=== PATIENT | female | born 1980 | race Caucasian/White ===

== ENCOUNTER 2022-09-25 11:18 | Emergency (ER) | payer MEDICAID, SELFPAY ==
[2022-09-25 11:47] VITALS: BP 160/90; PULSE 66; RESP 18; TEMP 36; O2SAT 95; BMI 54.8
[2022-09-25 12:00] VITALS: BP 146/80; PULSE 55; RESP 16; O2SAT 95
--- NOTE | 2022-09-25 12:04 | ED_ITS ---
HPI - General Adult General Time Seen by Provider: 12:04 Date Seen: 09/25/22 Chief complaint: Chest Pain Stated complaint: chest pain, L arm numb Time Seen by Provider: 09/25/22 12:04 Source: patient and RN notes reviewed Mode of arrival: ambulatory Limitations: no limitations History of Present Illness HPI narrative: Patient is a 41-year-old female coming into the ER of her own accord. She is coming in with complaint of chest pain that is been there for about 3 weeks. She believes that it may be more than just her anxiety. She endorses very severe anxiety to the point that she just wants to stay in her room all the time. She has a friend that she states keeps coming around to visit her for couple hours at a time which she is asked that they not do. She is trying to get outside now that it is not winter. She describes herself as very mobile. She feels this substernal chest pain and almost come like a wave upper chest into her neck. She feels short of breath, endorses chronic underlying cough due to smoking status. No history of pulmonary embolism, has not been sick. She states she has some chronic abdominal pain, wonders if this could be her UTI that is back. Did offer to run a urinalysis but she thinks she will not be able to urinate while here. She also notes for the last week some tingling in her left arm, no pain. It is all up and down the arm. She has no loss motor or function of the arm. She states she can still feel with it but it just feels numb and tingly. She does have a history of carpal tunnel on the right side, di d have numbness tingling but also experienced pain in the lower arm. No fevers or chills. Denies any heartburn, denies any associated nausea vomiting or diarrhea with this. She likens the sensation that she is feeling when you get food stuck or swallow wrong and there is a pain that comes up. She is most definitely not having dysphagia at the time, this is how it feels to her when it happens. Again the chest discomfort is been going on about 3 weeks, numbness tingling or arm over a week. Related Data Home Medications Medication Instructions Recorded Confirmed albuterol 90 mcg/actuation aerosol mcg inhalation 09/25/22 inhaler amlodipine 5 mg tablet 5 mg PO DAILY 09/25/22 09/25/22 diazepam 2 mg tablet (Valium) 1 mg PO DAILY PRN 09/25/22 09/25/22 diphenhydramine HCl .ROUTE 09/25/22 montelukast 10 mg tablet 10 mg PO QPM 09/25/22 09/25/22 Allergies Allergy/AdvReac Type Severity Reaction Status Date / Time bupropion [From Wellbutrin] Allergy Verified 09/25/22 11:44 citalopram [From Celexa] Allergy Verified 09/25/22 11:44 cyclobenzaprine Allergy Verified 09/25/22 11:44 [From Flexeril] droperidol Allergy Verified 09/25/22 11:44 duloxetine [From Cymbalta] Allergy Verified 09/25/22 11:44 fexofenadine Allergy Verified 09/25/22 11:44 hydrochlorothiazide Allergy Verified 09/25/22 11:44 ketorolac Allergy Verified 09/25/22 11:44 lorazepam [From Ativan] Allergy Verified 09/25/22 11:44 losartan Allergy Verified 09/25/22 11:44 omeprazole Allergy Verified 09/25/22 11:44 paroxetine [From Paxil] Allergy Verified 09/25/22 11:44 quetiapine [From Seroquel] Allergy Verified 09/25/22 11:44 sertraline Allergy Verified 09/25/22 11:44 Sulfa (Sulfonamide Allergy Verified 09/25/22 11:44 Antibiotics) tramadol Allergy Verified 09/25/22 11:44 varenicline [From Chantix] Allergy Verified 09/25/22 11:44 Review of Systems Status of ROS: Reports: 10 or more systems reviewed and unremarkable except as noted in History and below [facility] Social History Smoking Status: Light tobacco smoker Do you use any of these nicotine containing products: Vaping Products How often do you have a drink containing alcohol: never AUDIT-C Alcohol total score: 0 Non-prescribed substance use: marijuana (any form) Exam Const: Vital Signs, click to edit/add: Vital Signs - 24 hr 09/25/22 11:47 09/25/22 12:00 09/25/22 12:51 Temperature 96.8 F L Pulse Rate [Right Pulse Oximeter] 66 55 L Respiratory Rate 18 16 Blood Pressure [Ri ght Upper Arm] 160/90 H 146/80 H Pulse Oximetry 95 95 98 Oxygen Delivery Me thod Room Air Room Air 09/25/22 13:00 09/25/22 13:30 Temperature Pulse Rate [Right Pulse Oximeter] 56 L 53 L Respiratory Rate 16 16 Blood Pressure [Ri t Upper Arm] 155/70 H 171/92 H Pulse Oximetry 97 97 Oxygen Delivery Me thod Documenting provider has reviewed patient's vital signs: yes Common normals: no apparent distress, oriented x3, no limitations, alert and well nourished General appearance: cooperative, comfortable, well kempt and well developed Nutritional appearance: obese HENMT: Common normals: normocephalic, hearing grossly normal bilaterally, ext ernal ears normal, TM's normal bilaterally, external nose normal, nasal mucous membranes and turbinates normal, moist oral mucous membranes, oropharynx normal, dentition normal and gingiva normal Head and scalp: normocephalic Face and sinus: normal facial exam Nose: external nose normal and nasal mucous membranes and turbinates normal External ear: external ears normal Tympanic membrane: TM's normal bilaterally Mouth: lip normal Eye: Common normals: PERRL, EOMs intact bilaterally, conjunctivae normal and no scleral icterus Conjunctiva: conjunctiva(e) normal Pupil: PERRL Neck & C-Spine: Common normals: full ROM (No midline tenderness), no lymphadenopathy, supple, no meningeal signs, no JVD and thyroid normal Thyroid: thyroid normal Chest: Common normals: inspection of chest normal and palpation of chest normal Resp: Common normals: normal respiratory effort, no retractions, no use of accessory muscles and clear to auscultation bilaterally Auscultation: clear to auscultation bilaterally Cardio: Common normals: no JVD, regular rate, regular rhythm, S1 normal heart sound, S2 normal heart sound, no gallops, no clicks, no murmurs and no rub Rate: regular rate Rhythm: regular rhythm Heart sounds: S1 normal and S2 normal GI: Common normals: Normal to inspection, nondistended, normoactive bowel sounds present, soft to palpation and non-tender Palpation: soft Other: Body habitus precludes detection of masses or organomegaly but no tenderness at all. Extremity: Other: Lower extremities are thick but no edema. Neuro: Mary Coma Scale: document GCS findings Broadview coma scale eye opening: Spontaneous (4) Mary coma scale verbal response: Orientated (5) [place]view coma scale motor response: Obey commands (6) Mary coma scale total score: 15 Common normals: oriented x3, CN's II-XII intact bilaterally, moves all extremities, no focal motor deficits, no sensory deficits noted and gait normal Sensorium/orientation: alert Meningeal signs: no meningeal signs Speech: speech normal Other: Evaluation of UE shows symmetric normal strength, feels light touch sensation, good peripheral pulses, no change in color/temperature of extremities. Has normal rapid alternating finger movements bilaterally. No tremors. Psych: Appearance: well kempt Course Course Hospital Course: Reviewed with patient that we certainly will consider cardiac, pulmonary, thromboembolic pathology. Will do full complement of labs and chemistries will be part of that. Doubt that this is gastrointestinal beyond the possibility of esophageal or reflux. She is not however feeling any regurgitant symptoms. The left arm numbness and tingling without any neurologic change on examination could be a peripheral paresthesia. We did discuss cervical radiculopathy but she is not having any pain. It could be early carpal tunnel presentation that is atypical as she has had that on her right arm. Did discuss doing some cervical neck imaging but she states she had an MRI in 2018 and there was maybe some degenerative changes. If her cardiac in other workup here negative, it is likely that I will recommend her following up for the numbness tingling in outpatient workup of that. Reevaluation(s) Reevaluation #1: Reviewed with patient that there is no evidence of pulmonary embolus based on normal D-dimer, no evidence of hypoxia or tachycardia, cardiac labs are normal. She did wonder about her possible urine infection. I a had a note in her chart to collect a urinalysis if she had to go but patient states she just went. Reviewed with her that I need to see the urinalysis while here in order to treat if it is needed. She will see if she can give us a specimen. Time: 14:28 Reevaluation #2: Have reviewed with patient that her urinalysis is not definitively showing evidence requiring treatment. We will await urine culture. She became quite upset about this stating that she had watched her dad's [place] [facility] not treat a UTI. I reassured her that we had a mechanism in place for all urine cultures to be reviewed and should this grow something, we would treat accordingly. We discussed that they did recommend consideration for stress testing and a echo, would need to be ordered through her primary care provider. She states when she tries to get in, they are full and that she cannot get a provider, state that they are not taking new patients. Discussed possible options with her. She requests that we get her an appointment in our clinic here. She has seen [facility]. I reviewed with her that [facility] would not want to address echo in cardiac stress testing. Thus, she did request that I schedule her in our clinic. Time: 15:47 Vital Signs Vital signs: Initial Vital Signs Temperature 96.8 F L 09/25/22 11:47 Temperature Source Temporal Artery Scan 09/25/22 11:47 Pulse Rate 66 09/25/22 11:47 Respiratory Rate 18 09/25/22 11:47 Blood Pressure 160/90 H 09/25/22 11:47 Blood Pressure Mean 113 H 09/25/22 11:47 Blood Pressure Position Sitting 09/25/22 11:47 Pulse Oximetry 95 09/25/22 11:47 Oxygen Delivery Method Room Air 09/25/22 11:47 Vital Signs Temperature 96.8 F L 09/25/22 11:47 Pulse Rate 66 09/25/22 11:47 Respiratory Rate 18 09/25/22 11:47 Blood Pressure 160/90 H 09/25/22 11:47 Pulse Oximetry 95 09/25/22 11:47 Oxygen Delivery Method Room Air 09/25/22 11:47 Temperature 96.8 F L 09/25/22 11:47 Pulse Rate 53 L 09/25/22 13:30 Respiratory Rate 16 09/25/22 13:30 Blood Pressure 171/92 H 09/25/22 13:30 Pulse Oximetry 97 09/25/22 13:30 Oxygen Delivery Method Room Air 09/25/22 12:00 Medical Decision Making Lab Data Labs: Lab Results 09/25/22 09/25/22 Range/Units 12:35 15:15 WBC 11.16 H (4.50-11.00) K/uL RBC 4.99 (4.00-5.20) m/uL Hgb 14.2 (12.0-16.0) gm/dL Hct 42.3 (33.0-51.0) % MCV 85 (80-100) fL MCH 29 (26-34) pg MCHC 34 (32-36) gm/dL RDW Coeff of Marian 12.0 (11.5-15.5) % Plt Count 308 (140-440) K/uL Neut % (Auto) 66.5 (42.0-72.0) % Lymph % (Auto) 23.0 (20-44) % Troup % (Auto) 7.9 (0.0-11.0) % Eos % (Auto) 1.8 (0.0-7.0) % Baso % (Auto) 0.4 (0.0-3.0) % Neut # (Auto) 7.40 H (1.7-7.0) K/uL Lymph # (Auto) 2.60 (0.90-2.90) K/uL Troup # (Auto) 0.90 (0.00-0.90) K/UL Eos # (Auto) 0.20 (0.00-0.50) K/uL Baso # (Auto) 0.00 (0.00-0.30) K/uL ESR 22 H (2-20) mm/hr D-Dimer Quant (PE/DVT) < 0.27 (0.00-0.50) ug/ml Sodium 136 (135-149) mmol/L Potassium 3.4 L (3.6-5.1) mmol/L Chloride 106 (96-114) mmol/L Carbon Dioxide 23 (20-32) mmol/L BUN 8 (5-24) mg/dL Creatinine 0.8 (0.5-1.5) mg/dL Estimated Creat Clear 88.18 Estimated GFR 94 ml/min Glucose 105 (60-115) mg/dL Calcium 8.7 (8.4-10.6) mg/dL Magnesium 2.0 (1.5-2.6) mg/dL Total Bilirubin 0.4 (0.1-1.5) mg/dL AST 19 (12-35) U/L ALT 19 (4-35) U/L Alkaline Phosphatase 117 (40-150) U/L Troponin I < 0.01 L (0.01-0.04) ng/mL C-Reactive Protein 2.5 H (0.5-1.0) mg/dL NT-Pro-B Natriuret Pep 29 pg/mL Total Protein 7.0 (6.0-8.3) g/dL Albumin 3.9 (3.3-5.0) g/dL Urine Color Yellow (Yellow) Urine Appearance Clear (Clear) Urine pH 6.5 (5.0-8.5) Ur Specific Dorset 1.025 (1.000-1.030) Urine Protein Negative (Negative) Urine Glucose (UA) Negative (Negative) Urine Ketones Negative (Negative) Urine Blood Trace-lysed A (Negative) Urine Nitrite Negative (Negative) Urine Bilirubin Negative (Negative) Urine Urobilinogen 0.2 (0.2-1.0) Ur Leukocyte Esterase Trace A (Negative) Urine RBC 0-2 (0-2) Urine WBC 2-5 (0-5) Ur Squamous Epith Cells Few (None-Few) Urine Bacteria Few A (None) POC Troponin I 0.00 L (0.01-0.04) ng/ml Imaging Data Chest x-ray: Attestation: I have reviewed the pertinent imaging results. My impression: I see no evidence of pneumothorax, no acute exudate or infiltrate on this portable chest x-ray my preliminary review. Radiologist's impression: Patient: [facility] Facility:?[facility] Patient ID:?[id number] Site Patient ID:?[id number]. Site :?[id number] Study:?XRay Chest 1 VIEW PORTABLE-09/25/2022 12:48:50 PM Ordering Physician:Noam Garcia Final Report: Indication: Chest pain Comparison: None available. Technique: Single AP view chest Findings: There is hyperinflation and chronic interstitial change. There are mildly increased interstitial markings likely representing pulmonary vascular congestion. There is no dense consolidation, effusion or pneumothorax. The cardiomediastinal silhouette is within normal limits. The bony thorax is grossly intact. Impression: Mildly increased interstitial markings likely representing pulmonary vascular congestion. No dense consolidation. Dictated by James Valdes MD @ 09/25/2022 1:34:08 PM (Electronic Signature) ECG Data Attestation: I personally reviewed and interpreted this ECG as follows: (Sinus rhythm, 65 beats per minute. Nonspecific T-wave abnormality with out ischemic change. QT corrected 459 milliseconds.) Prior ECG tracings: not available for review (Could not pull up old EKG from 2007 in other clinical record.) Critical Care Time Critical Care Time Critical Care Time: No Discharge Plan Discharge Clinical Impression: Numbness and tingling in left arm, Chest pain, Urinary symptom or sign Patient Disposition: Home, Self-Care Condition: Stable Instructions: Chest Pain (ED), Paresthesia (ED), Noncardiac Chest Pain (ED) Additional Instructions: Recommend getting scheduled for a follow-up in clinic within the next week or as soon as possible. Do recommend discussion getting a possible echo, possible cardiac stress testing given your symptoms. May need further testing for the left arm numbness tingling such as an EMG but an EMG should not be done for at least 2 weeks after symptoms to be diagnostic. All of your symptoms should be reviewed in clinic. These all may require further evaluation and workup. In the meantime, if you are having progressive or increasing symptoms, anything new that is concerning to you, can always return to the ER for further evaluation. We will contact you should the urine culture grow anything that would require treatment. Follow up appt scheduled with Dr. Boyd for Thursday09/29/22 at 8:45am at [facility]. Prescriptions: No Action amlodipine 5 mg tablet 5 mg PO DAILY montelukast 10 mg tablet 10 mg PO QPM diazepam [Valium] 2 mg tablet 1 mg PO DAILY PRN albuterol 90 mcg/actuation aerosol inhalation diphenhydramine HCl [Benadryl Allergy] .ROUTE Follow Up/Referrals: Thomas Sanchez MD [Referring] - Stand Alone Forms: [employer] Info Instructions
--- NOTE | 2022-09-25 12:20 | CRLHL7_ITS ---
For Patients: As a result of the Century Cures Act, medical imaging exams and procedure reports are released immediately into your electronic medical record. You may view this report before your referring provider. If you have questions, please contact your health care provider. Indication: Chest pain Comparison: None available. Technique: Single AP view chest Findings: There is hyperinflation and chronic interstitial change. There are mildly increased interstitial markings likely representing pulmonary vascular congestion. There is no dense consolidation, effusion or pneumothorax. The cardiomediastinal silhouette is within normal limits. The bony thorax is grossly intact. Impression: Mildly increased interstitial markings likely representing pulmonary vascular congestion. No dense consolidation. Dictated by James Valdes MD @ 09/25/2022 1:34:08 PM (Electronically Signed)
[2022-09-25 12:46] LABS: Basophils Percent Auto 0.4 % (0.0-3.0); Eosinophils Percent Auto 1.8 % (0.0-7.0); Hematocrit 42.3 % (33.0-51.0); Hemoglobin* 14.2 gm/dL (12.0-16.0); Immature Granulocytes Pct Auto 0.4 %; Mean Corpuscular HGB Conc 34 gm/dL (32-36); Mean Corpuscular Hemoglobin 29 pg (26-34); Mean Corpuscular Volume 85 fL (80-100); Monocytes Percent Auto 7.9 % (0.0-11.0); Neutrophils Percent Auto 66.5 % (42.0-72.0); Platelet Count* 308 K/uL (140-440); Red Blood Count 4.99 m/uL (4.00-5.20); White Blood Count* 11.16 K/uL (4.50-11.00)
[2022-09-25 12:47] LABS: Slide Review Reflex No
[2022-09-25 12:51] VITALS: O2SAT 98
[2022-09-25 12:58] LABS: Albumin* 3.9 g/dL (3.3-5.0); Chloride* 106 mmol/L (96-114)
[2022-09-25 12:59] LABS: Potassium* 3.4 mmol/L (3.6-5.1); Sodium* 136 mmol/L (135-149)
[2022-09-25 13:00] VITALS: BP 155/70; PULSE 56; RESP 16; O2SAT 97
[2022-09-25 13:01] LABS: Creatinine* 0.8 mg/dL (0.5-1.5); Est. Creatinine Clearance* 88.18; Estimated Glomerular Filt Rate 94 ml/min
[2022-09-25 13:02] LABS: Alanine Aminotransferase* 19 U/L (4-35); Alkaline Phosphatase* 117 U/L (40-150); Aspartate Amino Transferase* 19 U/L (12-35); Bilirubin Total* 0.4 mg/dL (0.1-1.5); Blood Urea Nitrogen* 8 mg/dL (5-24); Calcium* 8.7 mg/dL (8.4-10.6); Carbon Dioxide* 23 mmol/L (20-32); Glucose* 105 mg/dL (60-115)
[2022-09-25 13:04] LABS: C Reactive Protein* 2.5 mg/dL (0.5-1.0)
[2022-09-25 13:10] LABS: D Dimer Quantitative* < 0.27 ug/ml (0.00-0.50)
[2022-09-25 13:18] LABS: NT Pro B Type NatriureticPept* 29 pg/mL; Troponin I* < 0.01 ng/mL (0.01-0.04)
[2022-09-25 13:30] VITALS: BP 171/92; PULSE 53; RESP 16; O2SAT 97
[2022-09-25 13:52] LABS: Erythrocyte SedimentationRate* 22 mm/hr (2-20)
[2022-09-25 15:24] LABS: Appearance Urine Clear (Clear); Bilirubin Urine Negative (Negative); Blood Urine Trace-lysed (Negative); Color Urine Yellow (Yellow); Glucose Urine Negative (Negative); Ketones Urine Negative (Negative); Leukocyte Esterase Urine Trace (Negative); Nitrite Urine Negative (Negative); Protein Urine Negative (Negative); Specific Gravity Urine 1.025 (1.000-1.030); Urobilinogen Urine 0.2 (0.2-1.0); pH Urine 6.5 (5.0-8.5)
[2022-09-25 15:38] LABS: Bacteria Urine Few; RBC Urine 0-2 (0-2); Squamous Epithelial Cell Urine Few (None-Few)
== END 2022-09-25 16:00 | disposition home or self-care (01) ==
PROVIDERS: Emergency Provider Family Medicine
DX: R20.2 Paresthesia of skin (principal); R07.9 Chest pain, unspecified; R39.89 Other symptoms and signs involving the genitourinary system
CPT/HCPCS: 36415; 71045; 80053; 81001; 83735; 83880; 84484; 85025; 85379; 85651; 86140; 87086; 93005; 94761; 99284

== ENCOUNTER 2022-12-19 09:49 | Outpatient (CLI) | payer MEDICAID, SELFPAY ==
--- OUTSIDE RECORDS SUMMARY | 2022-12-19 09:52 | XMS_ITS | Continuity of Care Document ---
Author Name Unknown Organization [facility] Address [address] [place] [address] Phone Care Team Providers Care Freight Brake Operator Name Role Phone Cayden ROBERTS, Russell Unavailable Unavailable Allergies, Adverse Reactions, Alerts Substance Reaction Status Criticality fexofenadine asthma attack Active No Information droperidol panic attack Active No Information cyclobenzaprine aggitation Active No Informati on duloxetine itching Active No Information paroxetine behavioral issues Active No Informa tion tramadol aggitation Active No Information sertraline itching Active No Information ketorolac aggitation Active No Information Medications Medication Instructions Dosage Effective Dates (start - stop) Status Comments GABAPENTIN (unknown strength) Not Available - Active VICODIN (unknown strength) Not Available - Active AMBIEN (unknown strength) Not Available - Active ATIVAN (unknown strength) Not Available - Active NAPROXEN (unknown strength) Not Available - Active MIRENA (unknown strength) Not Available - Active Procedures Procedure Date Postop Followup Visit Lumbar spine fusion, posterolateral Lumbar spine fus, pstr intrbdy sngl Insert spine fixation, posterior 2010 Apply spinal prosthetic device 11 Allograft, spine surg, morselized Assist ILumbar spine fusion, posterolate ral Assist Lumbar spine fus, pstr intrbdy sn gl Assist Insert spine fixation, posterior Assist Apply spinal prosthetic device De Advance Directives Directive Yes / No Effective Date File Name No Information Encounters Encounter Description Practice Location Reason(s) For Visit Diagnoses Date Provider Providers Copied on Encounter [facility], [address], [place], [address], [place] tel:[phone] [facility] No Information 3 Mehbod Amir. [facility], [address], [place], [place], [id number] , [place]. tel:[phone] [facility], [address] [place], [place] [address], [place], [address], [place] tel:[phone] [facility] No Information 2 Negron Quan. [facility], [address], [address], [place], [place], [id number] , [place]. tel:[phone] Referring Provider: Erin Palma, [facility], [place], [address] . tel:[phone] [facility] [place], [address] [place], [place] [address], [place], [address], [place] tel:[phone] [facility] No Information 1 Negron Quan. [facility], [address], [address], [place], [place], [id number] , [place]. tel:[phone] Referring Provider: Ron [facility] [employer], [place], [address] . tel:[phone] [facility] [place], [address] [place], [place] [address], [place], [address], [place] tel:[phone] [facility] low back pain (chief complaint) bilateral leg pain (chief complaint) AsthmaMigraine BIPOLAR AFFECTIVE NOS 1 Negron Quan. [facility] [place], [address], [address], [place], [place], [id number] , [place]. [phone] Referring Provider: Erin [facility] [place], [address] . tel:[phone] Family History Family Member Type Diagnosis Age At Onset Problem (finding) Family history of osteo porosis Problem (finding) Family history of Diabe elia mellitus Father Problem (finding) hypertension Problem (finding) Family history of osteo arthritis Problem (finding) Family history of Heart disease Problem (finding) Family history of Cance r Payers Payer name Insurance type Covered green party ID Authoriza tion(s) No Information Social History Type Description Quantity Date Captured Comments Sex Female Smoking Status No Information Chief Complaint And Reason For Visit No Information Reason For Referral Reason For Referral No Information History Of Present Illness Encounter Date Complaint History Of Prese nt Illness No Information Functional Status Date Functional Assessmen t No Information Instructions Date Instruction Additional Infor mation No Information Assessments Type Assessment Date No Information Patient Care Teams Name Effective Dates (start - stop) Status Members No Information
--- NOTE | 2022-12-19 10:15 | CRLHL7_ITS ---
For Patients: As a result of the Century Cures Act, medical imaging exams and procedure reports are released immediately into your electronic medical record. You may view this report before your referring provider. If you have questions, please contact your health care provider. BILATERAL SCREENING MAMMOGRAM WITH COMPUTER-AIDED DETECTION TECHNIQUE: CC and MLO views were obtained. These mammographic images have been obtained using full-field digital technique. These mammographic images were interpreted with the benefit of computer-aided detection. COMPARISON FILM: None, baseline. FINDINGS: There are scattered areas of fibroglandular density IMPRESSION: There is no radiographic evidence for malignancy. ASSESSMENT: BI-RADS Category 2: Benign RECOMMENDATION: Routine screening mammogram in 1 year. A lay language report of this examination will be provided to the patient. Dajuan Bedolla M.D. Diagnostic Radiologist [email or web address] HEATHER/Dictated by: Djauan Bedolla MD @ 12/19/2022 10:43:00 AM (Electronically Signed)
== END 2022-12-19 09:50 | disposition home or self-care (01) ==
LOC: MAMMO 09:50
PROVIDERS: PCP Family Medicine; Visit Provider Family Medicine
DX: Z12.31 Encounter for screening mammogram for malignant neoplasm of breast (principal)
CPT/HCPCS: 77067